=== PATIENT | female | born 1975 | race Caucasian/White ===

== ENCOUNTER → 2019-02-04 12:22 | Outpatient (CLI) | payer OTHER, SELFPAY ==
--- NOTE | 2019-02-04 12:24 | CT_ITS ---
STUDY: CT ABDOMEN AND PELVIS WITHOUT CONTRAST REASON FOR EXAM: Female, 43 years old. 2 week history of right flank pain. History of stones. RADIATION DOSAGE (If Supplied By Facility): CTDIvol = ( 8.14 ) mGy, DLP = ( 424.82 ) mGycm TECHNIQUE: Transaxial images were obtained from the dome of the diaphragm to the symphysis pubis without oral contrast, and without intravenous contrast. Sagittal and coronal images were reconstructed. Individualized dose optimization techniques were used for this CT. COMPARISON: None. FINDINGS: The visualized lung bases are unremarkable. The visualized portions of the heart are within normal limits. There is decreased attenuation of the liver consistent with steatosis. Normal gallbladder and extrahepatic biliary system. Normal spleen. Normal pancreas. Normal bilateral adrenal glands. Multiple nonobstructive right intrarenal calculi. The largest measures 3.7 mm and is in the lower pole calyx of the right kidney. 4 mm nonobstructive calculus in the lower pole calyx of the left kidney. There is also evidence of a 6.8 mm calculus in the lower pole calyx of the left kidney. There is a small hiatal hernia. Normal small intestine. Normal colon. The appendix is visualized and appears normal. Normal abdominal aorta. Normal inferior vena cava. There is borderline retroperitoneal lymphadenopathy with enlarged nodes no greater than 10mm in the short axis diameter. I suspect a 7.3 mm calculus at the base of the right side of the urinary bladder. Urinary bladder is empty at this time. There is absence of the uterus consistent with a prior hysterectomy. There is a small umbilical hernia containing fat. Normal osseous structures. CT/Abdomen/Pelvis without Cont IMPRESSION: Nonobstructive bilateral intrarenal calculi. I suspect a 7.3 mm calculus at the base of the right side of the bladder. Fatty infiltration of the liver. Electronically Signed: Hema Aleman, at 12:54 EDT , Service support ,
== END ==
PROVIDERS: Family Provider Nurse Practitioner Primary Care; PCP Nurse Practitioner Primary Care; Referring Provider Nurse Practitioner Adult Health; Visit Provider Nurse Practitioner Adult Health
DX: R10.9 Unspecified abdominal pain (principal); R31.29 Other microscopic hematuria; Z87.442 Personal history of urinary calculi
CPT/HCPCS: 74176; 87086; 87088

== ENCOUNTER → 2019-02-06 11:54 | Outpatient (CLI) | payer OTHER, SELFPAY ==
[2019-02-11 20:06] LABS: Ca Oxalate, Dihydrate 20 % (.); Ca Oxalate, Monohydrate 65 % (.); Calcium Phosphate 15 % (.); Size 8x5x5 mm (.)
== END ==
PROVIDERS: Family Provider Nurse Practitioner Primary Care; PCP Nurse Practitioner Primary Care; Referring Provider Urology; Visit Provider Urology
DX: N20.0 Calculus of kidney (principal)
CPT/HCPCS: 82360

== ENCOUNTER → 2019-02-24 08:47 | Outpatient (CLI) | payer OTHER, SELFPAY ==
--- NOTE | 2019-02-24 08:53 | RAD_ITS ---
STUDY: X-RAY - ABDOMEN/PELVIS REASON FOR EXAM: Female, 43 years old. Kidney stones TECHNIQUE: Two AP supine views of the abdomen and pelvis. COMPARISON: None. FINDINGS: The lung bases are not in the field of view of the study. There is an unremarkable bowel gas pattern. There is no demonstrated free abdominal air. There are several radiopacities overlying the lower pole of the right kidney measuring up to 4 mm consistent with nephrolithiasis. There are left pelvic phleboliths. There is a smooth margined calcification lateral to the right hip consistent with calcific tendinitis/bursitis. RAD/Abdomen Single View IMPRESSION: 1. There are several radiopacities overlying the lower pole of the right kidney measuring up to 4 mm consistent with nephrolithiasis. 2. There are left pelvic phleboliths. 3. There is a smooth margined calcification lateral to the right hip consistent with calcific tendinitis/bursitis. Electronically Signed: Carlyle St MD at 17:10 EDT , Service support ,
== END ==
PROVIDERS: Family Provider Nurse Practitioner Primary Care; PCP Nurse Practitioner Primary Care; Referring Provider Urology; Visit Provider Urology
DX: N20.0 Calculus of kidney (principal)
CPT/HCPCS: 74018

== ENCOUNTER 2019-03-11 09:46 | Day surgery (SDC) | payer OTHER, SELFPAY ==
[2019-03-11 10:20] VITALS: BP 101/63; PULSE 68; RESP 16; TEMP 36.6; O2SAT 98; BMI 28.8
[2019-03-11] MEDS: Cefazolin 2 GM in 0.9% Normal Saline 100 ML IV (11:07)
--- NOTE | 2019-03-11 11:49 | DCINST_ITS ---
Discharge Diet: Light diet - advance as tolerated Discharge Activity: Return to Normal Activity Call your doctor if your incision/area has: Sudden Increased Bleeding Suture Line Care: Avoid Pulling/Pushing, Avoid Pinching/Bending Allergies/Adverse Reactions: Allergies No Known Allergies Allergy (Verified 03/04/19 08:22) Medications to take at Discharge Cetirizine HCl [Zyrtec] 10 mg PO DAILY 01/04/16 Cholecalciferol (VIT D3) [Vitamin D] 1,000 unit PO DAILY 01/04/16 Cranberry 500 mg PO DAILY 01/04/16 Fluoxetine [Prozac] 20 mg PO DAILY 01/04/16 Propranolol HCl [Inderal LA] 60 mg PO DAILY 01/04/16 Rizatriptan Benzoate [Rizatriptan] 10 mg PO PRN PRN 01/04/16 Hydroxyzine HCl 20 mg PO QHS 03/04/19 L.acidoph,Paracasei, B.lactis [Probiotic] 1 ea PO DAILY 03/04/19 Hydrocodone/Acetaminophen [[place] 5-325 Tablet] 1 ea PO Q4H PRN PRN 5 Days #14 tab 03/11/19 The following prescriptions were given: Hydrocodone/Acetaminophen [[place] 5-325 Tablet] 1 ea PO Q4H PRN PRN 5 Days #14 tab PRN Reason: Pain Prescription Printed Primary Care Physician: Kayleigh García NP-C [Primary Care Provider] - Test Results: Test results from this visit will be discussed in further detail at your follow- up appointment, if applicable. Please Follow Up With: Elan Palacios MD When: in 2 weeks, please call to make an appointment.
--- NOTE | 2019-03-11 11:51 | PCM.OPRPT ---
Report of Operation Date of Procedure: 03/11/19 Pre-Operative Diagnosis: Kidney stones in the right lower pole Post-Operative Diagnosis: Same Surgery/Procedure Performed:: Right extracorporeal shockwave lithotripsy Description of Surgical Findings:: 44-year-old female with stone in the lower pole of the right kidney she was taken back to the operating room for treatment of the stones with shockwave lithotripsy she was placed supine on the table underwent general anesthesia with Dr. joey Herrera she was then positioned the table we found the stone in the lower pole the kidney rotated the fluoroscope I had to confirm the location and that we start treatment we monitored the fracturing of the stones under fluoroscopy and the stones broke up fairly rapidly after 1500 shockwaves of stones disappeared on the fluoroscopy at broken up completely. No stent was placed patient was extubated taken back to PACU in good condition she will follow-up in a few weeks with a KUB.
[2019-03-11 12:00] VITALS: BP 101/63; BP 98/51; PULSE 70; RESP 16; TEMP 35.8; O2SAT 96
[2019-03-11 12:15] VITALS: BP 101/63; BP 98/59; PULSE 70; RESP 16; O2SAT 100
[2019-03-11] MEDS: Ketorolac 15 MG/ML Vial IV (12:19)
[2019-03-11 12:30] VITALS: BP 101/63; BP 90/50; PULSE 65; RESP 16; O2SAT 99
[2019-03-11 12:45] VITALS: BP 101/63; BP 105/63; PULSE 60; RESP 16; TEMP 36.2; O2SAT 100
[2019-03-11 13:30] VITALS: BP 101/63; BP 106/69; PULSE 62; RESP 16; TEMP 36.6; O2SAT 100
== END 2019-03-11 13:44 | disposition home or self-care (01) ==
LOC: SDC 09:47 → AC 09:48
PROVIDERS: Family Provider Nurse Practitioner Primary Care; PCP Nurse Practitioner Primary Care; Referring Provider Urology; Visit Provider Urology
PROC: (CPT 50590; principal; 2019-03-11 11:10)
DX: N20.0 Calculus of kidney (principal); R31.29 Other microscopic hematuria; R35.0 Frequency of micturition; R35.1 Nocturia; R39.15 Urgency of urination; I10 Essential (primary) hypertension; G43.909 Migraine, unspecified, not intractable, without status migrainosus; F32.9 Major depressive disorder, single episode, unspecified; Z79.899 Other long term (current) drug therapy; Z87.442 Personal history of urinary calculi; Z87.440 Personal history of urinary (tract) infections
CPT/HCPCS: 00873; 50590; J7120; A4216; J2405

== ENCOUNTER → 2019-03-23 17:43 | Outpatient (CLI) | payer OTHER, SELFPAY ==
[2019-03-11 10:20] VITALS: BMI 28.8
== END ==
PROVIDERS: Family Provider Nurse Practitioner Primary Care; PCP Nurse Practitioner Primary Care; Referring Provider Urology; Visit Provider Urology
DX: R30.0 Dysuria (principal); R82.998 Other abnormal findings in urine
CPT/HCPCS: 87086; 87088

== ENCOUNTER → 2019-04-02 09:23 | Outpatient (CLI) | payer OTHER, SELFPAY ==
[2019-03-11 10:20] VITALS: BMI 28.8
--- NOTE | 2019-04-02 09:30 | RAD_ITS ---
STUDY: X-RAY - ABDOMEN/PELVIS REASON FOR EXAM: Female, 44 years old. Lower abdominal pressure history of kidney stones TECHNIQUE: KUB COMPARISON: February 24, 2019 FINDINGS: Normal visualized lung bases. There is an unremarkable bowel gas pattern. There is no demonstrated free abdominal air. The visualized liver, spleen and kidneys are grossly normal in size and morphology. Small bilateral renal calculi. Calcifications in the pelvis likely representing phleboliths. Normal visualized osseous structures. No significant change since prior exam RAD/Abdomen Single View IMPRESSION: Bilateral nephrolithiasis Electronically Signed: [place] MD at 17:10 EDT , Service support ,
== END ==
PROVIDERS: Family Provider Nurse Practitioner Primary Care; PCP Nurse Practitioner Primary Care; Referring Provider Urology; Visit Provider Urology
DX: N20.0 Calculus of kidney (principal)
CPT/HCPCS: 74018

== ENCOUNTER → 2020-10-12 11:10 | Outpatient (CLI) | payer OTHER, SELFPAY ==
--- NOTE | 2020-10-12 11:35 | RAD_ITS ---
STUDY: X-RAY - ABDOMEN/PELVIS REASON FOR EXAM: Female, 45 years old. KIDNEY STONE, LEFT SIDE TECHNIQUE: Single AP view of the abdomen / pelvis. COMPARISON: Comparison is made with prior study dated 04/02/2019. FINDINGS: Normal visualized lung bases. There is a moderate amount of colonic fecal material. There is no demonstrated free abdominal air. The visualized liver, spleen and kidneys are grossly normal in size and morphology. There are calcified phleboliths in the pelvis. Normal visualized osseous structures. RAD/Abdomen Single View IMPRESSION: Moderate amount of fecal material is seen in the colon. Electronically Signed: Hema Aleman MD at 13:38 EST , Service support ,
== END ==
PROVIDERS: PCP Nurse Practitioner Primary Care; Referring Provider Urology; Visit Provider Urology
DX: N20.0 Calculus of kidney (principal)
CPT/HCPCS: 74018

== ENCOUNTER 2020-11-04 05:57 | Day surgery (SDC) | payer OTHER, SELFPAY ==
[2020-11-04 06:30] VITALS: BP 105/72; PULSE 77; RESP 16; TEMP 36.3; O2SAT 97; BMI 28.4
[2020-11-04] MEDS: Lactated Ringers 1,000 ML 100 ML IV (06:55)
[2020-11-04] MEDS: Cefazolin 2 GM in 0.9% Normal Saline 100 ML IV (07:32)
--- NOTE | 2020-11-04 07:34 | PCM.HP.STD ---
Problem List (1) Left renal stone Status: Acute History of Present Illness Date of Admission: 11/04/20 Chief Complaint: Left renal calculi The patient is a 45 year old female with a history of a left renal calculus today she presents for treatment of the stone with shockwave lithotripsy we probably will not need to place a stent. Past Medical History Allergies No Known Allergies Allergy (Verified 10/28/20 15:24) Home Medications: Ambulatory Orders Medication Instructions Recorded Cetirizine HCl [Zyrtec] 10 mg PO DAILY 01/04/16 Cholecalciferol (VIT D3) [Vitamin 1,000 unit PO DAILY 01/04/16 D] Cranberry 500 mg PO DAILY 01/04/16 Fluoxetine [Prozac] 20 mg PO DAILY 01/04/16 Propranolol HCl [Inderal LA] 60 mg PO DAILY 01/04/16 Rizatriptan Benzoate [Rizatriptan] 10 mg PO PRN PRN 01/04/16 Hydroxyzine HCl 20 mg PO QHS 03/04/19 L.acidoph,Paracmerii, B.lactis 1 ea PO DAILY 03/04/19 [Probiotic] Surgical History: no surgical history Smoking Status: Never smoker Tobacco Use: Non-smoker Review of Systems Constitutional: Denies: Chills, Fever, Weight Change HEENT: Denies: Head Aches, Sinus Congestion, Sinus Drainage Cardiovascular: Denies: Chest Pain, Palpitations Respiratory: Denies: Cough, Shortness of breath at rest, Sputum production Gastrointestinal: Denies: Abdominal Pain, Nausea, Vomiting Genitourinary: Denies: Dysuria Musculoskeletal: Denies: Joint Pain, Joint Tenderness Skin: Denies: Rash, Wounds Neurological: Denies: Numbness, Tingling, Focal weakness Psychiatric: Denies: Anxiety, Depression, Homicidal Ideations, Suicidal Ideations Hematologic/ Lymphatic: Denies: Easy Bruising, Easy Bleeding VTE Information - Inpt Only VTE Present on Admission: No VTE Mechan Device Prophylaxis: SCD's - Physical Exam Vitals/I&O's: Vital Signs Temp Pulse Resp BP Pulse Ox 97.3 F L 77 16 105/72 97 11/04/20 06:30 11/04/20 06:30 11/04/20 06:30 11/04/20 06:30 11/04/20 06:30 Oxygen Delivery Method Room Air Weight: 87.4 kg Body Mass Index (BMI) 28.4 General: Alert, Oriented x3, Cooperative HEENT: Atraumatic, PERRLA, EOMI, Normocephalic Neck: Supple, No JVD, Negative Carotid Bruits Lungs: Clear to auscultation, Normal air movement Cardiovascular: Regular rate, No murmurs Abdomen: Bowel Sounds Present, Soft, Non Tender Extremities: No edema, Capillary Refill Less than 3 Seconds Skin: No rashes, No breakdown Musculoskeletal: No Tenderness to Palpation of Joints or Extremities Neurological: Cranial nerves II-XII grossly intact Psych/Mental Status: Normal Affect, Appropriate Microbiology Past 72 Hours 11/02/20 12:45 Interface Orders SARS-CoV-2 Antigen (Rapid) - Final Current Medications Cefazolin Sodium 2 gm/ Sodium (Chloride) 110 mls @ 150 mls/hr IV PREOP ONE Stop: 11/04/20 08:03 Lactated Ringer's () 1,000 mls @ 100 mls/hr IV .Q10H CHERIE Last Admin: 11/04/20 06:55 Dose: 100 mls/hr Documented by: Assessment/Plan All Active Problems Left renal stone (Acute) Excessive and frequent menstruation with regular cycle (Acute) Leiomyoma of uterus (Acute) Plan for treatment of her kidney stone with shockwave lithotripsy probably no stent.
--- NOTE | 2020-11-04 07:36 | PCM.DC.URO ---
Discharge Diet: Light diet - advance as tolerated Discharge Activity: Return to Normal Activity, May not drive while taking narcotic pain medications. Call your doctor if your incision/area has: Sudden Increased Bleeding, Increased Pain/ Swelling, Increased Redness Call your doctor if you observe: Fever of 101 or Higher Suture Line Care: Avoid Pulling/Pushing, Avoid Pinching/Bending Instructions: Shock Wave Lithotripsy Allergies/Adverse Reactions: Allergies No Known Allergies Allergy (Verified 10/28/20 15:24) Medications to take at Discharge Cetirizine HCl [Zyrtec] 10 mg PO DAILY 01/04/16 Cholecalciferol (VIT D3) [Vitamin D] 1,000 unit PO DAILY 01/04/16 Cranberry 500 mg PO DAILY 01/04/16 Fluoxetine [Prozac] 20 mg PO DAILY 01/04/16 Propranolol HCl [Inderal LA] 60 mg PO DAILY 01/04/16 Rizatriptan Benzoate [Rizatriptan] 10 mg PO PRN PRN 01/04/16 Hydroxyzine HCl 20 mg PO QHS 03/04/19 L.acidoph,Paracasei, B.lactis [Probiotic] 1 ea PO DAILY 03/04/19 Hydrocodone Bitart/Apap 5-325 [[place] 5MG-325MG] 1 tab PO Q4H PRN PRN 7 Days #14 tab 11/04/20 The following prescriptions were given: Hydrocodone Bitart/Apap 5-325 [[place] 5MG-325MG] 1 tab PO Q4H PRN PRN 7 Days #14 tab PRN Reason: Pain Prescription Printed Primary Care Physician: Kayleigh García COMPOUNDING TECHNICIAN, COMPOUNDING TECHNICIAN-C [Primary Care Provider] - Test Results: Test results from this visit will be discussed in further detail at your follow-up appointment, if applicable. Please Follow Up With: Elan Palacios MD When: in 2 weeks, please call to make an appointment.
[2020-11-04] MEDS: Ketorolac 15 MG/ML Vial IV (08:12)
--- NOTE | 2020-11-04 08:13 | PCM.OPRPT ---
Problem List (1) Left renal stone Status: Acute Report of Operation Date of Procedure: 11/04/20 Pre-Operative Diagnosis: left renal calculi Post-Operative Diagnosis: same Surgery/Procedure Performed:: Left extracorporeal shockwave lithotripsy Description of Surgical Findings:: Patient presents to the hospital for treatment of a kidney stone with shockwave lithotripsy. In the preoperative area and x-ray was done to confirm the location of the stone. The x-ray was reviewed and the stone location was reviewed. In the preoperative setting I spoke with the patient regarding the treatment of the stone how the treatment would be conducted and the expectations after surgery. The patient understands there is a risk of bleeding and infection. Also discussed the very rare risk of hematoma or damage to the kidney. We also discussed the risk that the shockwave machine will fail to break the stone adequately and that the patient may need other surgical procedures. We also discussed the possibility that the patient may need a stent after the procedure. After reviewing the procedure with the patient, the patient is signed the consent form all the patient's questions were addressed and was taken back to the operating room for treatment of a kidney stone. Patient was taken back to the operating room, patient was identified by the nursing staff, we identified the side of the treatment and the patient side of treatment had been marked by my initials. The patient underwent general anesthetic and was placed supine on the lithotripter table. We then used fluoroscopy to identify the stone in the left lower pole of the kindey about 6mm. We then positioned the patient under the lithotripter and we used triangulation technique to identify the location of the stone and then we made sure that the stone was engaged in the F2 focal point of F2 Donier lithoprior machine. Once the patient was positioned appropriately and the stone was identified and placed in the F2 focal point of the lithotripter machine we then proceeded with shockwave lithotripsy. In the beginning the shockwave was delivered at a rate of 90 shocks per minute, we monitor the EKG for any ectopy. The power was slowly increased to 5 kV and subsequently at the 7 kV. We then proceeded with the treatment we move the therapy had around during the treatment to make sure the stone stayed in the F2 focal point during the entire treatment. Once the stone had broken up completely then we stopped the treatment a total of about 3000 shockwaves were delivered to the stone under fluoroscopic guidance. At this point the patient's anesthetic was reversed patient was extubated and taken back to the PACU in stable condition. The patient was given instructions to call the office to make an a follow-up appointment. Type of Anesthesia:: General Drains: none - Admit VTE Documentation VTE Present on Admission: No VTE Mechan Device Prophylaxis: SCD's
[2020-11-04 08:28] VITALS: BP 105/72; BP 117/70; PULSE 88; RESP 16; TEMP 36; O2SAT 100
[2020-11-04 08:45] VITALS: BP 105/72; BP 107/64; PULSE 81; RESP 16; O2SAT 94
[2020-11-04 09:00] VITALS: BP 105/72; BP 117/80; PULSE 80; RESP 14; TEMP 36; O2SAT 100
[2020-11-04 09:43] VITALS: BP 105/72
== END 2020-11-04 09:47 | disposition home or self-care (01) ==
LOC: SDC 05:57 → AC 05:58
PROVIDERS: PCP Nurse Practitioner Primary Care; Referring Provider Urology; Visit Provider Urology
PROC: (CPT 50590; principal; 2020-11-04 07:20)
DX: N20.0 Calculus of kidney (principal); R31.29 Other microscopic hematuria; R31.1 Benign essential microscopic hematuria; R32 Unspecified urinary incontinence; R35.1 Nocturia; R35.0 Frequency of micturition; Z20.822 Contact with and (suspected) exposure to COVID-19; Z79.899 Other long term (current) drug therapy; Z87.440 Personal history of urinary (tract) infections; Z87.442 Personal history of urinary calculi; F32.9 Major depressive disorder, single episode, unspecified
CPT/HCPCS: 50590; 87426; C9803; J7120

== ENCOUNTER → 2020-12-01 09:55 | Outpatient (CLI) | payer OTHER, SELFPAY ==
[2020-11-04 06:30] VITALS: BMI 28.4
--- NOTE | 2020-12-01 10:00 | RAD_ITS ---
STUDY: X-RAY - ABDOMEN/PELVIS REASON FOR EXAM: Female, 45 years old. CALCULUS OF KIDNEY TECHNIQUE: AP supine and upright views of the abdomen and pelvis. COMPARISON: 10/12/2020 FINDINGS: Normal visualized lung bases. There is an unremarkable bowel gas pattern. There is no demonstrated free abdominal air. The visualized liver, spleen and kidneys are grossly normal in size and morphology. Subtle calcifications overlying the lower pole of the left kidney. These have decreased in size and number since the previous study. No calcifications noted along the expected course of either ureter. There are calcified phleboliths in the pelvis. Normal visualized osseous structures. RAD/Abdomen Single View IMPRESSION: Left nephrolithiasis Electronically Signed: Eliceo Artis MD at 11:59 EDT , Service support ,
== END ==
PROVIDERS: PCP Nurse Practitioner Primary Care; Referring Provider Nurse Practitioner Adult Health; Visit Provider Nurse Practitioner Adult Health
DX: N20.0 Calculus of kidney (principal)
CPT/HCPCS: 74018

== ENCOUNTER 2020-12-26 12:44 | Emergency (ER) | payer OTHER, SELFPAY ==
[2020-12-26 12:45] VITALS: BP 114/64; PULSE 77; PULSE 83; RESP 16; TEMP 35.7; O2SAT 97; O2SAT 98; BMI 29.0
--- NOTE | 2020-12-26 12:47 | RAD_ITS ---
STUDY: X-RAY - LUMBAR SPINE REASON FOR EXAM: Female, 45 years old. FALL, LOWER BACK PAIN -- ED WAITING ROOM TECHNIQUE: 2 view(s) of the lumbar spine were obtained. COMPARISON: None FINDINGS: There is an exaggerated lumbar lordosis. There is no substantial scoliosis. There is a normal alignment of the vertebrae. Normal vertebral bodies and endplates. Normal disc space heights. Tiny calculi are seen in the lower pole calyx of the left kidney. RAD/Lumbar Spine 2 or 3 Views IMPRESSION: Exaggerated lordosis. Electronically Signed: Hema Aleman MD at 13:34 EDT , Service support ,
--- NOTE | 2020-12-26 13:57 | EDS_ITS ---
HPI History of Present Illness Chief Complaint: Back Informant: patient Onset/Context/Timing Onset: Today Current Severity: Mild Maximum Severity: Moderate Narrative Narrative: Patient present secondary to increased low back pain. She suffered a fall down steps in August and had a compression fracture of L3. She completed physical therapy approximately 1 month ago and states she pretty much felt back to her baseline. Earlier today she slipped on wet concrete and fell. She has increased pain to her low back, worse just left of midline. She states pain does not radiate to her leg but her left leg does feel achy. She denies any other injury from her fall. PFSH PFSH Home Medications cetirizine [Zyrtec] 10 mg PO DAILY 01/04/16 [History Last Taken Unknown] cholecalciferol (vitamin D3) [Vitamin D] 1,000 unit PO DAILY 01/04/16 [History Last Taken Unknown] cranberry 500 mg PO DAILY 01/04/16 [History Last Taken Unknown] fluoxetine 20 mg PO DAILY 01/04/16 [History Last Taken Unknown] propranolol 60 mg PO DAILY 01/04/16 [History Last Taken 11/04/20] rizatriptan 10 mg PO PRN PRN 01/04/16 [History Last Taken Unknown] L.acidoph, paracasei,B. lactis 1 ea PO DAILY 03/04/19 [History Last Taken Unknown] hydroxyzine HCl 20 mg PO QHS 03/04/19 [History Last Taken Unknown] Allergy/AdvReac Type Severity Reaction Status Date / Time No Known Allergies Allergy Verified 12/26/20 12:44 Social History Smoking Status: Never smoker ROS ROS ED Constitutional Constitutional ED: Denies chills or fever(s) Eyes Eyes: Denies change in vision ENT ENT ED: Denies sore throat Cardiovascular Cardiovascular: Denies chest pain Respiratory/Chest Respiratory/Chest: Denies cough or dyspnea Gastrointestinal Gastrointestinal: Denies abdominal pain, diarrhea, nausea or vomiting Genitourinary Genitourinary ED: Denies dysuria Musculoskeletal Musculoskeletal: Reports back pain Integumentary Denies rash Neurologic Neurologic: Denies headache(s), paresthesias or weakness Psychiatric Psychiatric: Denies anxiety or depression Endocrine Endocrinology: Denies polydipsia or polyuria Allergic/Immunologic Allergic/Immunologic ED: Denies urticaria EXAM Physical Exam Const Vital Signs: 12/26/20 12:45 12/26/20 14:11 Temperature 96.2 F L Temperature Source Temporal Pulse Rate 83 70 Respiratory Rate 16 18 Blood Pressure 114/64 130/74 H Blood Pressure Mean 80 Pulse Ox 97 99 Oxygen Delivery Method Room Air Positive well nourished and well developed General Appearance ED: well developed HEENT Reports normocephalic and head/scalp atraumatic Eyes PERRL and EOMs intact bilaterally Neck supple Chest Wall inspection of chest normal and palpation of chest normal Resp normal respiratory effort and clear to auscultation bilaterally Cardio regular rate and regular rhythm GI normal to inspection, nondistended, normoactive bowel sounds Palpation: soft Back/Spine no CVA tenderness Back/Spine Narrative: No midline thoracic or lumbar tenderness. Mild tenderness to the left lumbar paraspinals. Extremity normal to inspection Neuro oriented x3 and no sensory deficits noted Sensorium / Orientation: alert Motor Exam: strength 5/5 throughout Psych mental status grossly normal Skin no rashes or lesions noted MDM MDM MDM Narrative Medical decision making narrative: Patient declined anything for pain while in the emergency room. She did take ibuprofen earlier today. X-rays of the lumbar spine per my interpretation revealed no acute abnormality. Radiologist interpretation is reviewed. This is discussed with the patient. She would prefer just to take ibuprofen or Tylenol at home and does not wish for any prescriptions. Radiography Diagnostic Testing: Radiology Impression Lumbar Spine X-Ray 12/26/20 12:47 IMPRESSION: Exaggerated lordosis. Electronically Signed: Hema Aleman MD at 13:34 EDT , Service support , Discharge Plan Triage Chief Complaint: Back ED Provider: Tesha May Dx/Rx/DC Orders Clinical Impression: Back contusion Instructions: ED Back Contusion Prescriptions: No Action propranolol 60 MG capsule 60 mg PO DAILY RF: 0 rizatriptan 10 MG tablet,disintegrating 10 mg PO PRN PRN (Reason: MIGRAINES) RF: 0 fluoxetine 20 MG capsule 20 mg PO DAILY RF: 0 cranberry 500 MG capsule 500 mg PO DAILY RF: 0 cholecalciferol (vitamin D3) [Vitamin D3] 1,000 UNIT tablet 1,000 unit PO DAILY RF: 0 Zyrtec 10 MG capsule 10 mg PO DAILY RF: 0 hydroxyzine HCl 10 MG tablet 20 mg PO QHS RF: 0 L.acidoph, paracasei,B. lactis 1 EACH capsule 1 ea PO DAILY RF: 0 Primary Care Provider: Kayleigh García NP Referrals: Kayleigh García NP, WELLNESS EDUCATOR-C [Primary Care Provider] - 1 Week if not improving Disposition Disposition: Home, self care Discharge Date/Time: 12/26/20 14:14
[2020-12-26 14:11] VITALS: BP 130/74; PULSE 70; RESP 18; O2SAT 99
== END 2020-12-26 14:14 | disposition home or self-care (01) ==
PROVIDERS: Emergency Provider Emergency Medicine; PCP Nurse Practitioner Primary Care
DX: S30.0XXA Contusion of lower back and pelvis, initial encounter (principal); W01.0XXA Fall on same level from slipping, tripping and stumbling without subsequent striking against object, initial encounter; Y93.9 Activity, unspecified; Y92.9 Unspecified place or not applicable; Y99.9 Unspecified external cause status; Z79.899 Other long term (current) drug therapy
CPT/HCPCS: 72100; 99282

== ENCOUNTER → 2022-06-28 | Outpatient (CLI) | payer OTHER, SELFPAY | END | disposition home or self-care (01) | LOC: SL 20:13 | PROVIDERS: PCP Nurse Practitioner Primary Care; Visit Provider Otolaryngology | DX: R53.83 Other fatigue (principal); R06.83 Snoring | CPT/HCPCS: 95810 ==

== ENCOUNTER → 2023-05-07 | Outpatient (CLI) | payer OTHER, SELFPAY ==
--- NOTE | 2023-05-07 11:36 | RAD_ITS ---
STUDY: X-RAY - ABDOMEN/PELVIS REASON FOR EXAM: Female, 48 years old. Generalized abdominal pain. TECHNIQUE: Single AP view of the abdomen / pelvis on 2 images. COMPARISON: Abdominal x-ray dated December 01, 2020. FINDINGS: Normal visualized lung bases. Normal bowel gas pattern with no disproportionate dilatation. No upright study so free air difficult to identify. The visualized liver, spleen and kidneys are grossly normal in size and morphology. Phleboliths. Normal visualized osseous structures. RAD/Abdomen Single View IMPRESSION: No acute abnormality of the lower chest, abdomen or pelvis. Electronically Signed: Georgi Sheridan MD at 14:42 EDT ,
== END | disposition home or self-care (01) ==
LOC: RAD 11:32
PROVIDERS: PCP Nurse Practitioner Primary Care; Referring Provider Urology; Visit Provider Urology
DX: R10.84 Generalized abdominal pain (principal)
CPT/HCPCS: 74018

== ENCOUNTER → 2025-04-15 | Outpatient (CLI) | payer OTHER, SELFPAY | END | disposition home or self-care (01) | LOC: SL 11:35 | PROVIDERS: PCP Nurse Practitioner Primary Care; Referring Provider Nurse Practitioner Acute Care; Visit Provider Nurse Practitioner Acute Care | DX: G47.33 Obstructive sleep apnea (adult) (pediatric) (principal) | CPT/HCPCS: 98960; G0463 ==